=== PATIENT | female | born 1980 | race Asian ===

== ENCOUNTER 2017-03-28 15:07 | Inpatient (IN) | payer SELFPAY ==
[~2017-03-28] VITALS: Ht 166 cm; Wt 72.6 kg
[2017-03-28] MEDS ORDERED: LR 1,000 ML IV ONE (15:56)
[2017-03-28] MEDS ORDERED: CEFAZOLIN 2 GM IVPB PREMIX 50 ML IV ONE (16:00)
[2017-03-28] MEDS ORDERED: METOCLOPRAMIDE HCL 10 MG/2 ML VIAL IVP ONE (16:00)
[2017-03-28] MEDS ORDERED: CITRIC ACID/SODIUM CITRATE 30 ML UDC PO ONE (16:00)
[2017-03-28 16:18] LABS: BASOPHILS # (AUTO) 0.1 K/uL (0.0-0.2); BASOPHILS % (AUTO) 0.9 % (0.0-2.0); EOSINOPHILS % (AUTO) 0.6 % (0.0-4.0); HEMOGLOBIN 12.7 g/dL (12.0-16.0); LYMPHOCYTES # (AUTO) 1.2 K/uL (1.0-5.5); LYMPHOCYTES % (AUTO) 16.3 % (20.5-51.5); MEAN CORPUSCULAR HEMOGLOBIN 30 pg (27-31); MEAN CORPUSCULAR HGB CONC 33 % (32-36); MEAN CORPUSCULAR VOLUME 91 fL (79.0-98.0); MONOCYTES # (AUTO) 0.7 K/uL (0.0-1.0); MONOCYTES % (AUTO) 9.4 % (1.7-9.3); NEUTROPHILS # (AUTO) 5.4 K/uL (1.8-7.7); NEUTROPHILS % (AUTO) 72.8 % (40.0-70.0); PLATELET COUNT (AUTO) 235 K/uL (130-430); RED BLOOD CELL COUNT(AUTO) 4.18 MIL/uL (4.2-6.2); RED CELL DISTRIBUTION WIDTH 13.4 % (9.0-15.0); WHITE BLOOD COUNT (AUTO) 7.4 K/uL (4.8-10.8)
[2017-03-28 17:53] VITALS: BP_SYST 131
[2017-03-28] MEDS ORDERED: ONDANSETRON HCL 4 MG/2 ML VIAL IVP PRN (19:30)
[2017-03-28] MEDS ORDERED: KETOROLAC TROMETHAMINE 60 MG/2 ML VIAL IM PRN (19:30)
[2017-03-28] MEDS ORDERED: KETOROLAC TROMETHAMINE 30 MG VIAL IVP PRN (19:30)
[2017-03-28] MEDS ORDERED: DIPHENHYDRAMINE INJ 50 MG/ML VIAL IVP PRN (19:30)
[2017-03-28] MEDS ORDERED: MORPHINE SULFATE 10MG/10ML PF AMP SP SCH (19:30)
[2017-03-28] MEDS ORDERED: NALBUPHINE HCL 10 MG/ML AMP IVP PRN (19:30)
[2017-03-28] MEDS ORDERED: NALOXONE HCL 0.4 MG/ML AMP (NARCAN) IVP PRN ×2 (19:30)
[2017-03-28] MEDS ORDERED: fentaNYL CITRATE/PF 100 MCG/2 ML AMP IVP PRN (19:30)
[2017-03-28 20:51] VITALS: BP_SYST 120
[2017-03-28] MEDS ORDERED: TEMAZEPAM 15 MG CAPSULE PO PRN (21:00)
[2017-03-28] MEDS ORDERED: OXYTOCIN/NORMAL SALINE 1,000 ML IV ONE (21:14)
[2017-03-28] MEDS ORDERED: HYDROcodone/ACETAMIN 5-325 MG TAB (NORCO/ VICODIN) PO PRN (21:15)
[2017-03-28] MEDS ORDERED: MEASLES,MUMPS&RUBELLA VACC/PF 12500 UNIT/0.5 ML VIAL SUBQ PRN (21:15)
[2017-03-28] MEDS ORDERED: ANUSOL 1 EA SUPP.RECT (PREPARATION H) RC PRN (21:15)
[2017-03-28] MEDS ORDERED: SIMETHICONE 80 MG TAB.CHEW PO PRN (21:15)
[2017-03-28] MEDS ORDERED: LANOLIN 7 GM OINT. TP PRN (21:15)
[2017-03-28] MEDS ORDERED: OXYCODONE/ACETAMINOPHEN 5-325 TABLET PO PRN ×2 (21:15)
[2017-03-28] MEDS ORDERED: DIPHENHYDRAMINE INJ 50 MG/ML VIAL ONE (21:26)
[2017-03-28] MEDS ORDERED: MEPERIDINE HCL/PF 25 MG/ML DISP.SYRIN IVP PRN (21:45)
[2017-03-28] MEDS ORDERED: MEPERIDINE HCL/PF 25 MG/ML DISP.SYRIN ONE (21:47)
[2017-03-29] MEDS: LR 1,000 ML IV SCH ×2 (03:01→11:34)
[2017-03-29] MEDS: CEFAZOLIN 1 GM IVPB PREMIX 50 ML IV SCH ×3 (05:56→11:33)
[2017-03-29] MEDS: IBUPROFEN 600 MG TABLET PO SCH ×4 (05:57→23:59)
[2017-03-29 06:37] LABS: BASOPHILS % (AUTO) 0.2 % (0.0-2.0); HEMATOCRIT 35.2 % (36-48); HEMOGLOBIN 11.5 g/dL (12.0-16.0); LYMPHOCYTES # (AUTO) 0.8 K/uL (1.0-5.5); MEAN CORPUSCULAR HEMOGLOBIN 30 pg (27-31); MEAN CORPUSCULAR HGB CONC 33 % (32-36); MEAN CORPUSCULAR VOLUME 92 fL (79.0-98.0); MONOCYTES # (AUTO) 0.6 K/uL (0.0-1.0); MONOCYTES % (AUTO) 4.5 % (1.7-9.3); NEUTROPHILS # (AUTO) 12.7 K/uL (1.8-7.7); NEUTROPHILS % (AUTO) 89.3 % (40.0-70.0); PLATELET COUNT (AUTO) 205 K/uL (130-430); RED BLOOD CELL COUNT(AUTO) 3.82 MIL/uL (4.2-6.2); RED CELL DISTRIBUTION WIDTH 13.1 % (9.0-15.0); WHITE BLOOD COUNT (AUTO) 14.1 K/uL (4.8-10.8)
[2017-03-29] MEDS: DOCUSATE SODIUM 100 MG CAPSULE PO PRN (12:07)
[2017-03-30] MEDS: IBUPROFEN 600 MG TABLET PO SCH ×3 (06:16→17:45)
[2017-03-30] MEDS: DOCUSATE SODIUM 100 MG CAPSULE PO PRN (11:46)
== END 2017-03-30 18:55 | disposition home or self-care (01) | DRG 765 ==
LOC: SPU 15:07
PROVIDERS: ADMIT Obstetrics & Gynecology; ATTEND Obstetrics & Gynecology
PROC: 10D00Z1 Extraction of Products of Conception, Low, Open Approach (ICD-10-PCS; principal; 2017-03-28 19:30)
DX: O42.92 Full-term premature rupture of membranes, unspecified as to length of time between rupture and onset of labor (principal); O41.03X0 Oligohydramnios, third trimester, not applicable or unspecified; O34.211 Maternal care for low transverse scar from previous cesarean delivery; Z3A.40 40 weeks gestation of pregnancy; Z37.0 Single live birth
CPT/HCPCS: 36415; 82962; 85025; 86886; 86900; 86901; 94760; J0690; J1200; J2175; J7120